=== PATIENT | female | born 1995 | race Hispanic/Latino ===

== ENCOUNTER 2017-04-01 03:18 | Inpatient (IN) | payer MEDICAID ==
[~2017-04-01] VITALS: Ht 159.3 cm; Wt 70.3 kg
[~2017-04-01 03:18] MED LIST: ONDA8TAB10 PO
[2017-04-01] MEDS ORDERED: Lactated Ringer's 1,000 ML IV PRN (04:04)
[2017-04-01] MEDS ORDERED: Sodium Chloride LOK Flush 10 mL Syringe IVFLUSH PRN (04:05)
[2017-04-01] MEDS ORDERED: Oxytocin 10 Unit/mL Inj IM PRN ×2 (04:05→09:25)
[2017-04-01] MEDS ORDERED: Carboprost 250 mCg/mL Inj IM PRN ×2 (04:05→09:25)
[2017-04-01] MEDS ORDERED: fentaNYL-PF 50 mCg/mL 2 mL Inj IVPUSH PRN (04:05)
[2017-04-01] MEDS ORDERED: Methylergonovine 0.2 mg/mL Inj IM PRN ×2 (04:05→09:25)
[2017-04-01] MEDS ORDERED: Hemorrhage Kit, Post Partum XX ONE ×2 (04:05→09:25)
[2017-04-01] MEDS ORDERED: Ondansetron 2 mg/mL 2 mL Inj IVPUSH PRN (04:05)
[2017-04-01] MEDS ORDERED: Oxytocin 30 Units/500 mL LR 30 UNITS in IV Premix 1 EACH IV PRN ×2 (04:05→09:25)
[2017-04-01 04:17] LABS: Mean Corpuscular Hemoglobin 28.1 pg (27.0-35.0); Mean Corpuscular Volume 86.1 fL (81-100)
[2017-04-01] MEDS ORDERED: PREN1TAB87 PO (04:42)
--- NOTE | 2017-04-01 08:32 | HP ---
[address] [address] HISTORY AND PHYSICAL PATIENT: CHRIS CHAND : 1995 MR#: [id number] ADMIT: 04/01/2017 JOB ID: [id number] IDENTIFYING DATA/CHIEF COMPLAINT: The patient is a 22-year-old, multipara at term, labor. HISTORY OF PRESENT ILLNESS: The patient is at 40 and 1/7th weeks by a seven week ultrasound presents with contractions starting earlier today, presented to the Center at 6 cm. No rupture of membranes. No bleeding. movement has been normal. Patient has otherwise been feeling well in recent days without fevers or other illnesses. ALLERGIES: No known drug allergies. CURRENT MEDICATIONS: 1. Vitamin D 2000 units. 2. vitamins. CURRENT HISTORY: Dates as noted above (patient had uncertain LMP, becoming , within less than a month after removal of ParaGard IUD). Blood type O positive. Rubella immune. RPR negative. Hepatitis B surface antigen negative. HIV negative. Gonorrhea and chlamydia negative. Quad screen window missed. One hour Glucola was normal. GBS negative. Anatomy US within normal limits. PREVIOUS HISTORY: In 2012, normal vaginal in [place] without complications. Patient was in labor for about nine hours. No hemorrhage. PAST MEDICAL/SURGICAL HISTORY: Noncontributory. No history of surgeries. No history of asthma or bleeding problems or hypertension. SOCIAL HISTORY: Does not smoke. No alcohol or drug use. No documented intimate partner violence. At this point, unclear when patient immigrated from [place], will try to clarify that in case that requires testing after delivering the . OBJECTIVE: Vital signs have been stable with a single elevated blood pressure taken during a contraction; otherwise, no vital sign abnormalities. She is in no acute distress. She is pleasant, cooperative, quite uncomfortable with frequent contractions. Cardiovascular: Regular rate and rhythm. S1, S2 heard. No murmurs, gallops, or rubs. Lungs: Clear to auscultation. No crackles or wheezes. Abdomen: Soft, gravid. Estimated weight 7 pounds. Lower extremities without edema. strip shows a baseline in the 130s with moderate variability. Cervical exam at 7.5 cm, 95% and zero station. Intact. AROM is performed, clear fluid obtained, tolerated well by and mother. ASSESSMENT AND PLAN: A 22-year-old, 2, para 1, in active labor. Doing well. Group B Streptococcus negative. Routine management. Anticipate vaginal delivery. MTDD
[2017-04-01] MEDS ORDERED: Lactated Ringer's 1,000 ML IV SCH (09:21)
[2017-04-01] MEDS ORDERED: LANOlin HPA 7 Gm Ointment TOPICAL PRN (09:25)
[2017-04-01] MEDS ORDERED: Witch Hazel-Glycerin Pads TOPICAL PRN (09:25)
[2017-04-01] MEDS ORDERED: HYDROcodone-APAP 5-325 mg Tablet PO PRN (09:25)
[2017-04-01] MEDS ORDERED: Benzocaine (Dermoplast) 20% 60 Gm Spray TOPICAL PRN (09:25)
--- NOTE | 2017-04-01 09:49 | OP ---
[address] [address] OPERATIVE REPORT PATIENT: CHRIS CHAND : 1995 MR#: [id number] ADMIT: 04/01/2017 JOB ID: [id number] DATE OF SURGERY: 04/01/2017 SURGEON: Rd Diana M.D. PREOPERATIVE DIAGNOSIS(ES): POSTOPERATIVE DIAGNOSIS(ES): DELIVERY NOTE: Stage I: See H and P. Total duration approximately 4 hours (from admission at 6 cm). The patient had AROM with clear fluid done at an hour prior to delivery. The did well in first stage. One significant decel during first stage, otherwise category 1 strip. Pain control with breathing, will power, relaxation, nursing support. No fevers. Stage 2: Total duration of 2 minutes. The patient moved from about 9.5 cm to rapidly. Initial portion of delivery done by nurse with provider present and then scrubbed in. Delivery of 3332 g baby girl in ANTONY position over intact perineum. Infant received Apgars 9 and 9. The delivered to maternal abdomen. Delayed cord clamping done by provider at 60 seconds after . Stage 3: Total duration of 6 minutes. Pitocin given after delivery of intact placenta with a three-vessel cord. EBL 200 mL. Infant and mother both doing well at time of this dictation. MTDD
[2017-04-02 06:43] LABS: Mean Corpuscular Hemoglobin 27.6 pg (27.0-35.0); Mean Corpuscular Volume 86.9 fL (81-100)
--- NOTE | 2017-04-02 12:08 | PCM.DIOB ---
Obstetrical Disch Instruction Date of Service: Apr 02, 2017 Dates of Hospitalization Date of Hospital Admission Apr 01, 2017 at 03:58 Providers Admitting Physician: Alexa Manrique MD Primary Care Physician: Alexa Manrique MD Attending Physician: Alexa Manrique MD Discharge Diagnosis Problems: (1) (normal spontaneous vaginal delivery) Status: Acute ICD Code: O80 Diet Discharge Diet: No restrictions Activity Discharge Activity-General: Pelvic Rest for 6 weeks, Balance rest and activity Dressing and Incisional Care Hygiene: May shower, Perineal care, Sitz bath, Dermoplast spray, Witch Ling pads, Ice Additional Instructions Discharge Instructions Medications (ibuprofen, PNVs, DSS ) all faxed to [facility] pharmacy by Dr. Diana through [facility] outpatient electronic record Follow Up Plan Follow-up Provider (F9): Alexa Manrique MD Follow-up appointment: Weeks (6) Call your provider for: Fever or Chills, Shortness of breath, Heavy vaginal bleeding, Heavy bleeding, Excessive constipation, Vaginal discomfort, Red painful breasts, Other (swollen, painful leg) Rd Diana MD Apr 02, 2017 12:08
[2017-04-02 12:31] VITALS: BP 111/70; PULSE 54; RESP 16
--- NOTE | 2017-04-10 17:28 | DIS ---
[address] [address] DISCHARGE SUMMARY PATIENT: CHRIS CHAND : 1995 MR#: [id number] ADMIT: 04/01/2017 JOB ID: [id number] DIS: 04/02/2017 ADMISSION DIAGNOSIS: Multiparity, active labor. DISCHARGE DIAGNOSIS: 2, now para 2, status post normal spontaneous vaginal delivery. No complications. HOSPITAL COURSE: For details of admission and delivery, please see notes by this provider. , the patient did well ambulating well with normal bowel and bladder function. Bleeding normal. She was breast feeding well. Good p.o. intake and tolerating with no nausea or vomiting. No fevers. PHYSICAL EXAMINATION: Vital signs were stable. On the day of discharge, she was afebrile and she was in no acute distress. Pleasant, cooperative, well bonded with her . Cardiovascular: Rhythm S1-S2 heard, no murmurs, gallops, rubs. Lungs clear to auscultation with bilateral breath sounds, no crackles, rhonchi or wheezes. Abdomen is soft, nontender. Uterus is just to the left of midline, about 1 cm above the umbilicus, moderate firmness, firms well with massage and returns to the midline. Lower extremities without edema, nontender. DISCHARGE LABORATORY: Show hematocrit 33.7. White count 10.5. Platelets 182. DISCHARGE INSTRUCTIONS: Usual potential complications of peripartum reviewed with the patient and discussed how to manage those as well as to seek care appropriately when they occur. Ibuprofen, vitamins and docusate all faxed to the [facility] pharmacy by Dr. Diana through the [facility] electronic outpatient record. Patient is to follow up in six weeks with jos Ulloa
== END 2017-04-02 14:38 | disposition home or self-care (01) | DRG 775 ==
LOC: FBCO 03:18 → FBC 03:58
PROVIDERS: ADMIT Family Medicine; ATTEND Family Medicine
PROC: 10E0XZZ Delivery of Products of Conception, External Approach (ICD-10-PCS; principal; 2017-04-01)
PROC: 10907ZC Drainage of Amniotic Fluid, Therapeutic from Products of Conception, Via Natural or Artificial Opening (ICD-10-PCS; 2017-04-01)
DX: O80 Encounter for full-term uncomplicated delivery (principal); Z37.0 Single live birth; Z3A.40 40 weeks gestation of pregnancy